=== PATIENT | male | born 1975 | race Caucasian/White ===

== ENCOUNTER 2018-06-11 18:43 | Emergency (ER) | payer SELFPAY ==
--- NOTE | 2018-06-11 22:57 | Emergency Department Report ---
- General Chief complaint: Skin/Abscess/Foreign Body Stated complaint: BODY PAIN Time Seen by Provider: 06/11/18 22:39 Source: patient Mode of arrival: Ambulatory Limitations: No Limitations - History of Present Illness Initial comments: Patient is a 43-year-old male who presents for rash to left thigh stage redness itching there is no open lesions no drainage no fever no chills no dysuria no back pain pressure past 2 weeks MD complaint: rash Onset/Timin -: week(s) Tetanus Up to Date: yes Location: LLE, RLE Severity: moderate Severity scale (0 -10): 4 Quality: burning, other (itching) Consistency: intermittent Improves with: none Worsens with: other (itch scratch cycle ) Associated symptoms: itching Treatments Prior to Arrival: none - Related Data Previous Rx's Medication Instructions Recorded Last Taken Type Terbinafine [LamiSIL At 1%] 1 applicatio TP BID 14 Days #1 tube 06/11/18 Unknown Rx diphenhydrAMINE [Benadryl CAP] 25 mg PO Q8HR PRN #30 capsule 06/11/18 Unknown Rx Allergies Allergy/AdvReac Type Severity Reaction Status Date / Time No Known Allergies Allergy Verified 06/11/18 18:51 Abscess Boil HPI - HPI Chief Complaint: Skin/Abscess/Foreign Body Stated Complaint: BODY PAIN Time Seen by Provider: 06/11/18 22:39 Home Medications: Previous Rx's Medication Instructions Recorded Last Taken Type Terbinafine [LamiSIL At 1%] 1 applicatio TP BID 14 Days #1 tube 06/11/18 Unknown Rx diphenhydrAMINE [Benadryl CAP] 25 mg PO Q8HR PRN #30 capsule 06/11/18 Unknown Rx Allergies/Adverse Reactions: Allergies Allergy/AdvReac Type Severity Reaction Status Date / Time No Known Allergies Allergy Verified 06/11/18 18:51 ED Review of Systems ROS: Stated complaint: BODY PAIN Other details as noted in HPI Constitutional: denies: chills, fever Eyes: denies: eye pain, eye discharge, vision change ENT: denies: ear pain, throat pain Respiratory: denies: cough, shortness of breath, wheezing Cardiovascular: denies: chest pain, palpitations Endocrine: no symptoms reported Gastrointestinal: denies: abdominal pain, nausea, diarrhea Genitourinary: denies: urgency, dysuria Musculoskeletal: denies: back pain, joint swelling, arthralgia Skin: rash (bilat inner thigh erythema pruritis , no fever no discharge no weeping no open sores) Neurological: denies: headache, weakness, paresthesias Psychiatric: as per HPI Hematological/Lymphatic: denies: easy bleeding, easy bruising ED Past Medical Hx - Past Medical History Previous Medical History?: No - Surgical History Past Surgical History?: No - Social History Smoking Status: Never Smoker Substance Use Type: Alcohol - Medications Home Medications: Home Medications Medication Instructions Recorded Confirmed Last Taken Type Terbinafine [LamiSIL At 1%] 1 applicatio TP BID 14 Days #1 tube 06/11/18 Unknown Rx diphenhydrAMINE [Benadryl CAP] 25 mg PO Q8HR PRN #30 capsule 06/11/18 Unknown Rx ED Physical Exam - General Limitations: No Limitations General appearance: alert, in no apparent distress - Head Head exam: Present: atraumatic, normocephalic - Eye Eye exam: Present: normal appearance - ENT ENT exam: Present: mucous membranes moist - Neck Neck exam: Present: normal inspection - Respiratory Respiratory exam: Present: normal lung sounds bilaterally - Cardiovascular Cardiovascular Exam: Present: regular rate, normal rhythm. Absent: systolic murmur, diastolic murmur, rubs, gallop - GI/Abdominal GI/Abdominal exam: Present: soft, normal bowel sounds - Rectal Rectal exam: Present: deferred - Extremities Exam Extremities exam: Present: normal inspection - Back Exam Back exam: Present: normal inspection - Neurological Exam Neurological exam: Present: alert, oriented X3 - Psychiatric Psychiatric exam: Present: normal affect, normal mood - Skin Skin exam: Present: rash, erythema, urticaria (bilat inner thigh no discharge no fever no open lesions ) ED Course Vital Signs 06/11/18 18:47 Temperature 98.4 F Pulse Rate 78 Respiratory 16 Rate Blood Pressure 140/93 O2 Sat by Pulse 99 Oximetry ED Medical Decision Making - Medical Decision Making This is likely tinea pedis would treat for sign Benadryl for itching Lamisil jock itch patient will follow up with [facility] in 2-3 days patient verbalize understanding and agreeable with same for home D/ C to home in stable condition at this time Critical care attestation.: If time is entered above; I have spent that time in minutes in the direct care of this critically ill patient, excluding procedure time. ED Disposition Clinical Impression: Tinea cruris Disposition: DC-01 TO HOME OR SELFCARE Is pt being admited?: No Does the pt Need Aspirin: No Condition: Good Instructions: Rm Itch (ED), Terbinafine (On the skin) Prescriptions: diphenhydrAMINE [Benadryl CAP] 25 mg PO Q8HR PRN #30 capsule PRN Reason: Itching Terbinafine [LamiSIL At 1%] 1 applicatio TP BID 14 Days #1 tube Referrals: PRIMARY CARE, [Primary Care Provider] - 3-5 Days Forms: Work/School Release Form(ED) Time of Disposition: 22:59
[2018-06-11 23:55] VITALS: BP 144/90
== END 2018-06-11 23:15 | disposition home or self-care (01) ==
LOC: ED 18:43
DX: B35.6 Tinea cruris (principal)
CPT/HCPCS: 99282